=== PATIENT | female | born 1955 | race African-American/Black ===

== ENCOUNTER 2021-11-28 08:37 | Outpatient (CLI) | payer MEDICARE, OTHER | END 2021-11-28 08:38 | disposition home or self-care (01) | LOC: BICMAMMO 08:37 | PROVIDERS: ATTEND Family Medicine | DX: R92.8 Other abnormal and inconclusive findings on diagnostic imaging of breast (principal) | CPT/HCPCS: 76642; 77066; G0279 ==

== ENCOUNTER → 2021-12-05 | Day surgery (SDC) | payer OTHER, MEDICAID | END | disposition home or self-care (01) | LOC: BICULT 12:25 | PROVIDERS: ATTEND Family Medicine | PROC: 0H9U3ZX Drainage of Left Breast, Percutaneous Approach, Diagnostic (ICD-10-PCS; principal; 2021-12-05) | DX: C50.412 Malignant neoplasm of upper-outer quadrant of left female breast (principal); Z17.0 Estrogen receptor positive status [ER+] | CPT/HCPCS: 19083; 88305; 88341; 88342 ==

== ENCOUNTER 2022-07-18 10:03 | Outpatient (CLI) | payer OTHER ==
[~2022-07-18 10:03] MED LIST: Iopamidol 370 76% 100 ML VIAL ONE
== END 2022-07-18 10:04 | disposition home or self-care (01) ==
LOC: NM 10:03
PROVIDERS: ATTEND Internal Medicine
DX: C50.412 Malignant neoplasm of upper-outer quadrant of left female breast (principal); N63.20 Unspecified lump in the left breast, unspecified quadrant; E27.9 Disorder of adrenal gland, unspecified
CPT/HCPCS: 71260; 74177; 78306; 82565; A9503

== ENCOUNTER 2022-07-23 11:24 | Outpatient (CLI) | payer OTHER ==
[2022-07-23 13:21] LABS: #Basophils 0.1 10x3/uL (0.0-0.2); #Eosinphils 0.2 10x3/uL (0.0-0.5); #Monocytes 0.4 10x3/uL (0.0-1.1); #Neutrophils 4.9 10x3/uL (1.5-8.4); %Basophils 0.9 % (0.0-2.0); %Eosinophils 2.8 % (0.0-6.0); %Lymphocytes 29.8 % (18.0-47.0); %Monocytes 5.1 % (0.0-10.0); %Neutrophils 61.1 % (40.0-75.0); Hemoglobin 14.3 g/dL (12.0-15.5); Mean Corpuscular HGB CONC 33.1 g/dL (32.0-36.0); Mean Corpuscular Hemoglobin 31.2 pg (27.0-33.0); Mean Corpuscular Volume 94.1 fl (81.6-98.3); Mean Platelet Volume 10.5 fl (7.4-10.4); Platelet Count 234 10x3/uL (150-450); RBC Distribution Width 12.8 % (11.5-14.5); Red Blood Cell (RBC) Count 4.59 10x6/uL (3.90-5.03)
[2022-07-23 13:51] LABS: Anion Gap 17 mmol/L (10-20); BUN (Urea Nitrogen) 12 mg/dL (9.8-20.1); Calc. Creatinine Clearance 0 mL/min (70-130); Calcium 9.4 mg/dL (7.8-10.44); Carbon Dioxide 23 mmol/L (23-31); Chloride 103 mmol/L (98-107); Estimated GFR 90; Glucose 149 mg/dL (80-115); Potassium 4.2 mmol/L (3.5-5.1); Sodium 139 mmol/L (136-145)
== END 2022-07-23 11:25 | disposition home or self-care (01) ==
LOC: LABBT 11:24
PROVIDERS: ATTEND Specialist
DX: Z01.818 Encounter for other preprocedural examination (principal); C50.412 Malignant neoplasm of upper-outer quadrant of left female breast
CPT/HCPCS: 36415; 71046; 80053; 85025; 93005; 93010

== ENCOUNTER 2022-07-26 06:58 | Day surgery (SDC) | payer OTHER ==
[2022-07-24 12:26] VITALS: BMI 34.0
[2022-07-26] MEDS ORDERED: CEFAZOLIN 2 GM VIAL ONE (09:19)
[2022-07-26] MEDS ORDERED: Ketorolac Tromethamine 30 MG/ML VIAL ONE (09:19)
[2022-07-26] MEDS ORDERED: Acetaminophen 500 MG TAB ONE (09:19)
[2022-07-26] MEDS ORDERED: Sodium Chloride 0.9% 100 ML ONE (09:19)
[2022-07-26] MEDS ORDERED: Bupivacaine/Epinephrine 0.25% 30 ML VIAL ONE ×2 (10:19→13:02)
[2022-07-26] MEDS ORDERED: Lidocaine 2% PF 5 ML VIAL ONE (10:19)
[2022-07-26] MEDS ORDERED: Isosulfan Blue 50 MG/5 ML VIAL ONE (10:19)
[2022-07-26] MEDS ORDERED: fentaNYL 50 mcg/mL 1 mL Vial ONE (10:59)
[2022-07-26] MEDS ORDERED: SUGAMMADEX SODIUM 200 MG/2 ML VIAL ONE (10:59)
[2022-07-26] MEDS ORDERED: Ondansetron PF 4 MG/2 ML Vial ONE (11:18)
[2022-07-26] MEDS ORDERED: PROPOFOL 200 MG/20 ML VIAL ONE (11:18)
[2022-07-26] MEDS ORDERED: NEOSTIGMINE 3 MG/3 ML SYR 3 MG/3 ML SYRINGE ONE (11:18)
[2022-07-26] MEDS ORDERED: Dexamethasone 20 MG/5 ML VIAL ONE (11:18)
[2022-07-26] MEDS ORDERED: Rocuronium Bromide 10 MG/ML (10ML VIAL) ONE (11:18)
[2022-07-26] MEDS ORDERED: Lidocaine 1% PF 5 ML VIAL ONE (11:18)
[2022-07-26] MEDS ORDERED: ePHEDrine Sulfate 50 MG/10 ML VIAL ONE (11:18)
[2022-07-26] MEDS ORDERED: GLYCOPYRROLATE/PF 0.2 MG/ML VIAL ONE (11:18)
== END 2022-07-26 14:59 | disposition home or self-care (01) ==
LOC: SDC 06:58
PROVIDERS: ATTEND Specialist
PROC: 0HBU0ZZ Excision of Left Breast, Open Approach (ICD-10-PCS; principal; 2022-07-26)
PROC: 07B60ZX Excision of Left Axillary Lymphatic, Open Approach, Diagnostic (ICD-10-PCS; 2022-07-26)
DX: C50.412 Malignant neoplasm of upper-outer quadrant of left female breast (principal); M19.90 Unspecified osteoarthritis, unspecified site; E11.9 Type 2 diabetes mellitus without complications; I10 Essential (primary) hypertension; F17.210 Nicotine dependence, cigarettes, uncomplicated; E66.9 Obesity, unspecified; Z68.34 Body mass index [BMI] 34.0-34.9, adult; Z17.0 Estrogen receptor positive status [ER+]; Z79.82 Long term (current) use of aspirin; Z79.84 Long term (current) use of oral hypoglycemic drugs; Z79.899 Other long term (current) drug therapy
CPT/HCPCS: 19301; 38525; 38900; 76098; 78195; A9541; C1713; J3010; J3490; Q9968; 88307; 88342; J1100; J1885; J2001; J2405; J2704

== ENCOUNTER 2022-08-09 10:26 | Outpatient (CLI) | payer OTHER | END 2022-08-09 10:27 | disposition home or self-care (01) | LOC: CT 10:26 | PROVIDERS: ATTEND Internal Medicine | DX: C50.412 Malignant neoplasm of upper-outer quadrant of left female breast (principal); E27.9 Disorder of adrenal gland, unspecified; R93.5 Abnormal findings on diagnostic imaging of other abdominal regions, including retroperitoneum | CPT/HCPCS: 74170 ==

== ENCOUNTER 2022-08-30 06:49 | Day surgery (SDC) | payer OTHER, MEDICAID ==
[2022-08-28 13:25] VITALS: BMI 34.0
[2022-08-30] MEDS ORDERED: Ketorolac Tromethamine 30 MG/ML VIAL ONE (08:04)
[2022-08-30] MEDS ORDERED: Acetaminophen 500 MG TAB ONE (08:04)
[2022-08-30] MEDS ORDERED: Propofol 500 MG/50 ML VIAL ONE (08:38)
[2022-08-30] MEDS ORDERED: fentaNYL PF 100 MCG/2 ML SYRINGE ONE (08:38)
[2022-08-30] MEDS ORDERED: Lidocaine 2% 6 ML SYR ONE (08:39)
[2022-08-30] MEDS ORDERED: Bupivacaine/Epinephrine 0.25% 30 ML VIAL ONE (08:42)
[2022-08-30] MEDS ORDERED: Lidocaine 2% PF 5 ML VIAL ONE (08:42)
[2022-08-30] MEDS ORDERED: CEFAZOLIN 2 GM VIAL ONE (08:51)
[2022-08-30] MEDS ORDERED: Sodium Chloride 0.9% 100 ML ONE (08:51)
[2022-08-30] MEDS ORDERED: PROPOFOL 200 MG/20 ML VIAL ONE (09:05)
== END 2022-08-30 10:58 | disposition home or self-care (01) ==
LOC: SDC 06:49
PROVIDERS: ATTEND Specialist
PROC: 0JH60WZ Insertion of Totally Implantable Vascular Access Device into Chest Subcutaneous Tissue and Fascia, Open Approach (ICD-10-PCS; principal; 2022-08-30)
PROC: 02HV33Z Insertion of Infusion Device into Superior Vena Cava, Percutaneous Approach (ICD-10-PCS; 2022-08-30)
PROC: B518ZZA Fluoroscopy of Superior Vena Cava, Guidance (ICD-10-PCS; 2022-08-30)
DX: C50.412 Malignant neoplasm of upper-outer quadrant of left female breast (principal); M19.90 Unspecified osteoarthritis, unspecified site; E11.9 Type 2 diabetes mellitus without complications; I10 Essential (primary) hypertension; F17.210 Nicotine dependence, cigarettes, uncomplicated; E66.9 Obesity, unspecified; Z68.34 Body mass index [BMI] 34.0-34.9, adult; Z17.0 Estrogen receptor positive status [ER+]; Z79.82 Long term (current) use of aspirin; Z79.84 Long term (current) use of oral hypoglycemic drugs; Z79.899 Other long term (current) drug therapy
CPT/HCPCS: 71045; C1788; J1642; J1885; J2001; J2704; J3490

== ENCOUNTER 2023-02-07 09:18 | Outpatient (CLI) | payer OTHER | END 2023-02-07 09:19 | disposition home or self-care (01) | LOC: BICMAMMO 09:18 | PROVIDERS: ATTEND Internal Medicine | DX: Z13.820 Encounter for screening for osteoporosis (principal); T38.6X5A Adverse effect of antigonadotrophins, antiestrogens, antiandrogens, not elsewhere classified, initial encounter | CPT/HCPCS: 77080 ==

== ENCOUNTER 2023-05-16 09:05 | Outpatient (CLI) | payer OTHER | END 2023-05-16 09:06 | disposition home or self-care (01) | LOC: BICRAD 09:05 | PROVIDERS: ATTEND Family Medicine | DX: J44.9 Chronic obstructive pulmonary disease, unspecified (principal) | CPT/HCPCS: 71046 ==

== ENCOUNTER 2024-05-04 09:31 | Outpatient (CLI) | payer OTHER | END 2024-05-04 09:32 | disposition home or self-care (01) | LOC: BICMAMMO 09:31 | PROVIDERS: ATTEND Internal Medicine | DX: C50.412 Malignant neoplasm of upper-outer quadrant of left female breast (principal); Z78.0 Asymptomatic menopausal state | CPT/HCPCS: 77080 ==